=== PATIENT | female | born 1985 | race African-American/Black ===

== ENCOUNTER 2020-04-28 13:04 | Emergency (ER) | payer BC ==
[~2020-04-28] VITALS: Ht 167.6 cm; Wt 77.1 kg
[2020-04-28] MEDS ORDERED: PSEUDOEPHEDRIN120 M1 PO (13:20)
[2020-04-28] MEDS ORDERED: MEDROXYPROGESTER5 GM PO (13:21)
[2020-04-28 13:27] LABS: URINE BILIRUBIN NEGATIVE (Negative); URINE BLOOD NEGATIVE (Negative); URINE CLARITY CLEAR; URINE COLOR YELLOW; URINE GLUCOSE-RANDOM NEGATIVE (Negative); URINE KETONES NEGATIVE (Negative); URINE LEUKOCYTES-REFLEX TRACE (Negative); URINE NITRITE-REFLEX NEGATIVE (Negative); URINE PROTEIN NEGATIVE (Negative); URINE SPECIFIC GRAVITY 1.015 (1.005-1.030); URINE UROBILINOGEN 0.2 E.U./dl (0.2-1.0)
[2020-04-28 13:37] LABS: BACTERIA-REFLEX 1-9 Few /HPF (None Seen); CASTS None Seen /LPF (None Seen); CRYSTALS None Seen /LPF (None Seen); SQUAMOUS 0-3 Few /LPF (0-3); URINE RBC 0-2 Rare /HPF (0-2); URINE WBC-REFLEX 0-5 Rare /HPF (0-5)
[2020-04-28 13:38] LABS: ABSOLUTE LYMPHOCYTES 1.4 thou/uL (0.8-5.3); ABSOLUTE MONOCYTES 0.6 thou/uL (0.0-1.2); ABSOLUTE NEUTROPHILS 4.7 thou/uL (1.6-8.1); BASOPHILS 0.3 %; EOSINOPHILS 0.6 %; HEMATOCRIT 39.6 % (37.0-47.0); HEMOGLOBIN 13.8 gm/dL (12.0-15.0); LYMPHOCYTES 21.3 %; MCH 29.9 pg (26.0-34.0); MCHC 34.8 g/dL (28.0-37.0); MCV 85.7 fL (80.0-100.0); MONOCYTES 8.3 %; MPV 8.7 fl. (7.2-11.1); NUCLEATED RBCS 0 /100WBC; PLATELET COUNT* 216 thou/uL (150-400); POLYS 69.5 %; RBC 4.61 mil/uL (4.20-5.00); RDW-CV 12.6 % (10.5-14.5); WBC 6.8 thou/uL (4.0-11.0)
[2020-04-28 13:55] LABS: CALCIUM 9.1 mg/dL (8.5-10.1); CREATININE 0.6 mg/dL (0.6-1.3); POTASSIUM 3.8 mmol/L (3.5-5.1)
[2020-04-28 14:00] LABS: ALBUMIN 3.9 g/dL (3.4-5.0); TOTAL BILIRUBIN 0.5 mg/dL (<0.1-1.0); TOTAL PROTEIN 7.8 g/dL (6.4-8.2)
[2020-04-28 14:01] LABS: LIPASE 108 U/L (73-393)
[2020-04-28] MEDS ORDERED: TYLENOL WITH CO1 TA1 PO (15:44)
[2020-04-28] MEDS ORDERED: ONDANSETRON ODT4 MG PO (15:44)
[2020-04-28 16:05] VITALS: BP 124/81
== END 2020-04-28 16:07 | disposition home or self-care (01) ==
LOC: M.ERS 13:04
PROVIDERS: Physician Assistant
DX: R11.2 Nausea with vomiting, unspecified (principal); R10.84 Generalized abdominal pain; Z91.040 Latex allergy status; Z88.8 Allergy status to other drugs, medicaments and biological substances

== ENCOUNTER 2021-02-17 14:52 | Emergency (ER) | payer BC ==
[~2021-02-17] VITALS: Ht 167.6 cm; Wt 75.3 kg
[~2021-02-17 14:52] MED LIST: MEDROXYPROGESTER5 GM PO; MIGRAINE MED; ONDANSETRON ODT4 MG PO; PSEUDOEPHEDRIN120 M1 PO; TYLENOL WITH CO1 TA1 PO; UBRELVY50 MG PO; ZOFRAN ODT4 MG SUBLING
[2021-02-17] MEDS ORDERED: URIBEL CAPSULE1 EACH PO (15:09)
[2021-02-17] MEDS ORDERED: FLEXERIL PO (15:29)
[2021-02-17 15:39] VITALS: BP 136/80
== END 2021-02-17 15:42 | disposition home or self-care (01) ==
LOC: M.ERS 14:52
DX: S00.03XA Contusion of scalp, initial encounter (principal); S80.11XA Contusion of right lower leg, initial encounter; G43.909 Migraine, unspecified, not intractable, without status migrainosus; Z91.040 Latex allergy status; Z88.8 Allergy status to other drugs, medicaments and biological substances; W18.39XA Other fall on same level, initial encounter; Y93.89 Activity, other specified; Y92.89 Other specified places as the place of occurrence of the external cause; Y99.8 Other external cause status

== ENCOUNTER 2021-05-22 12:26 | Emergency (ER) | payer BC ==
[~2021-05-22] VITALS: Ht 167.6 cm; Wt 72.6 kg
[~2021-05-22 12:26] MED LIST changes: +FLEXERIL PO; +URIBEL CAPSULE1 EACH PO
[2021-05-22 14:49] LABS: URINE BILIRUBIN NEGATIVE (Negative); URINE BLOOD NEGATIVE (Negative); URINE CLARITY CLEAR; URINE COLOR YELLOW; URINE GLUCOSE-RANDOM NEGATIVE (Negative); URINE KETONES NEGATIVE (Negative); URINE LEUKOCYTES-REFLEX 1+ (Negative); URINE NITRITE-REFLEX NEGATIVE (Negative); URINE PROTEIN NEGATIVE (Negative); URINE UROBILINOGEN 0.2 E.U./dl (0.2-1.0)
[2021-05-22 14:51] LABS: ABSOLUTE LYMPHOCYTES 1.1 thou/uL (0.8-5.3); ABSOLUTE MONOCYTES 0.4 thou/uL (0.0-1.2); ABSOLUTE NEUTROPHILS 6.9 thou/uL (1.6-8.1); BASOPHILS 0.4 %; EOSINOPHILS 0.2 %; HEMATOCRIT 37.6 % (37.0-47.0); LYMPHOCYTES 13.2 %; MCH 29.1 pg (26.0-34.0); MCHC 34.6 g/dL (28.0-37.0); MCV 84.2 fL (80.0-100.0); MONOCYTES 4.9 %; MPV 9.4 fl. (7.2-11.1); NUCLEATED RBCS 0 /100WBC; PLATELET COUNT* 127 thou/uL (150-400); POLYS 81.3 %; RBC 4.46 mil/uL (4.20-5.00); RDW-CV 12.7 % (10.5-14.5); WBC 8.5 thou/uL (4.0-11.0)
[2021-05-22 14:58] LABS: BACTERIA-REFLEX 1-9 Few /HPF (None Seen); CALCIUM 8.9 mg/dL (8.5-10.1); CASTS None Seen /LPF (None Seen); CREATININE 0.6 mg/dL (0.6-1.3); CRYSTALS None Seen /LPF (None Seen); MUCUS 0-3 Light strn/LPF (None Seen); POTASSIUM 3.6 mmol/L (3.5-5.1); SQUAMOUS 0-3 Few /LPF (0-3); URINE RBC None Seen /HPF (0-2); URINE WBC-REFLEX 6-15 Few /HPF (0-5)
[2021-05-22 15:03] LABS: TOTAL BILIRUBIN 0.6 mg/dL (<0.1-1.0); TOTAL PROTEIN 7.7 g/dL (6.4-8.2)
--- NOTE | 2021-05-22 15:41 | EKG ---
[place] [address] ELECTROCARDIOGRAM REPORT Name: PANDA FRIAS Room: [facility]#: [id number] Admission: 05/22/21 Attend Phys: Discharge: Date of : 89 Date of Service: 05/22/21 1232 Report #: [id number] THIS REPORT FOR: //name// [facility] ED Test Date: 2021-05-22 Test Time: 12:32:05 Pat Name: PANDA FRIAS Department: Room: Gender: [employer]: [place] : 1985 Requested By: Shawn Judd Order Number: [id number] MD: Levi Ruvalcaba Measurements Intervals [place] Rate: 70 P: 53 SC: 153 QRS: 73 QRSD: 81 T: 30 QT: 386 QTc: 417 Interpretive Statements Sinus rhythm Baseline wander in lead(s) II No previous ECG available for comparison Electronically Signed On 05-22-2021 15:40:51 CDT by Levi Ruvalcaba [email or web address] <ELECTRONICALLY SIGNED> By: Levi Ruvalcaba MD, [facility] 05/22/21 1540 1232 1232 Levi Ruvalcaba MD, FACC /EPI
[2021-05-22] MEDS ORDERED: ZOFRAN ODT4 MG DISSOLVE (16:13)
[2021-05-22] MEDS ORDERED: CEPHALEXIN500 MG PO (16:13)
[2021-05-22 16:50] VITALS: BP 117/76
== END 2021-05-22 16:50 | disposition home or self-care (01) ==
LOC: M.ERS 12:26
PROVIDERS: Emergency Medicine Emergency Medical Services
DX: N39.0 Urinary tract infection, site not specified (principal); Z20.822 Contact with and (suspected) exposure to COVID-19; G43.909 Migraine, unspecified, not intractable, without status migrainosus; Z91.040 Latex allergy status; Z88.1 Allergy status to other antibiotic agents; Z88.8 Allergy status to other drugs, medicaments and biological substances